=== PATIENT | female | born 1960 | race Caucasian/White ===

== ENCOUNTER 2019-08-20 11:56 | Emergency (ER) | payer BC ==
[~2019-08-20] VITALS: Ht 180.3 cm; Wt 89.5 kg
[~2019-08-20 11:56] MED LIST: ASPI-630 PO; ATEN25TA PO; CRESTOR40 MG PO; EXEN2VIA SQ; EZET10TA20 PO; FURO40TA4 PO; INSU100I13 SQ; INSU100V6 SQ; ISOS60TA2 PO; LISI2.5T PO; LUTE20TA PO; METF-658 PO; METF500T16 PO; METO10TA81 PO; MULT-208 PO; NITR0.4T24 SL; OMEG10005 PO; OMEP20CA16 PO; POTA20TA4 PO
--- NOTE | 2019-08-20 12:37 | PHYS DOC ---
Past Medical History Past Medical History: CHF, Diabetes-Type II Additional Past Medical Histor: neuropathy Past Surgical History: Coronary Bypass Surgery, Hysterectomy Smoking Status: Never Smoker Alcohol Use: None Drug Use: None General Adult EDM: Chief Complaint: CHEST PAIN HPI: HPI: Patient is a 59 year old female patient who presents with back pain, chest pain. States that started last night, has continued on throughout the day. States that she has been around other persons who have tested positive for COVID recently, had been tested yesterday at [facility] for COVID, is currently awaiting results. States she has had a fever, dry productive cough. States malaise. Has taken Tylenol for her fever this morning. Does states she has history of prior cardiac bypass, states last time she need her bypass, she started have some back pain similar to what she is currently having. Denies any nausea. Denies exertional dyspnea. Does state discomfort is worse when she lays back. Review of Systems: Review of Systems: Constitutional: Reports fever and chills [] Eyes: Denies change in visual acuity. [] HENT: Denies nasal congestion or sore throat. [] Respiratory: reports cough, shortness of breath. [] Cardiovascular: Reports chest pain, denies edema. [] GI: Denies abdominal pain, nausea, vomiting, bloody stools or diarrhea. [] : Denies dysuria. [] Musculoskeletal: Denies back pain or joint pain. [] Integument: Denies rash. [] Neurologic: Denies headache, focal weakness or sensory changes. [] Endocrine: Denies polyuria or polydipsia. [] Lymphatic: Denies swollen glands. [] Psychiatric: Denies depression or anxiety. [] Heart Score: HEART Score for Chest Pain: HEART Score for Chest Pain Response (Comments) Value History Moderately Suspicious 1 ECG Normal 0 Age >45 - < 65 1 Risk Factors >3 Risk Factors or Hx CAD 2 Troponin < Normal Limit 0 Total 4 Risk Factors: Risk Factors: DM, Current or recent (<one month) smoker, HTN, HLP, family history of CAD, obesity. Risk Scores: Score 0 - 3: 2.5% MACE over next 6 weeks - Discharge Home Score 4 - 6: 20.3% MACE over next 6 weeks - Admit for Clinical Observation Score 7 - 10: 72.7% MACE over next 6 weeks - Early Invasive Strategies Allergies: Allergies: Allergies Coded Allergies Type Severity Reaction Last Updated Verified acetaminophen Allergy Intermediate Nausea and Vomiting 05/08/15 Yes hydrocodone Allergy Intermediate Nausea and Vomiting 05/08/15 Yes Physical Exam: PE: Constitutional: Well developed, well nourished, no acute distress, non-toxic appearance. [] HENT: Normocephalic, atraumatic, oropharynx moist, no oral exudates, nose no rmal. [] Eyes: PERRLA, EOMI, conjunctiva normal, no discharge. [] Neck: Normal range of motion, no tenderness, supple, no stridor. [] Cardiovascular:Heart rate regular rhythm, no murmur [] Lungs & Thorax: Bilateral breath sounds clear to auscultation [] Abdomen: Bowel sounds normal, soft, no tenderness, no masses, no pulsatile masses. [] Skin: Warm, dry, no erythema, no rash. [] Back: No tenderness, no CVA tenderness. [] Extremities: No tenderness, no cyanosis, no clubbing, ROM intact, no edema. Negative Homans [] Neurologic: Alert and oriented X 3, normal motor function, normal sensory function, no focal deficits noted. [] Psychologic: Affect normal, judgement normal, mood normal. [] Current Patient Data: Vital Signs: Vital Signs Date Time Temp Pulse Resp B/P (MAP) Pulse Ox O2 Delivery O2 Flow Rate FiO2 08/20/19 12:03 98.3 71 128/71 (90) 98 Room Air 98.3 EKG: EKG: normal sinus rhythm, no ST elevation. T wave inversion I, aVL, V5, V6. [] Radiology/Procedures: Radiology/Procedures: FINDINGS: A frontal view of the chest obtained. There is no infiltrate, pleural effusion or pneumothorax. The heart is normal in size. There is evidence of prior median sternotomy. IMPRESSION: No acute pulmonary finding. Electronically signed by: mAanda Archibald MD (08/20/2019 1:03 PM) [facility][] Course & Med Decision Making: Course & Med Decision Making Pertinent Labs and Imaging studies reviewed. (See chart for details) [] Patient reports she feels a lot better resting at this time. States no more frequent shortness of breath. States she did follow-up with her primary care approximate 2 weeks ago, she will follow-up again. Advised patient to continue to isolate herself, staff to work, awaiting the results of her home COVID testing. When she is resistant, contact her primary care. States she does not want to stay in the hospital, states she feels a lot better at this time. Discussed patient her lab findings, vital signs, without signs of any hypoxia or cardiac abnormalities today. Stevie Disclaimer: Dragon Disclaimer: This electronic medical record was generated, in whole or in part, using a voice recognition dictation system. Departure Departure Impression: Primary Impression: Exposure to COVID-19 virus Additional Impressions: Back pain Qualified Codes: M54.6 - Pain in thoracic spine Cough Disposition: HOME, SELF-CARE Condition: GOOD Referrals: DIXON CORRALES MD (PCP) Patient Instructions: Back Pain, Adult, Cough, Adult Additional Instructions: As we discussed, let your primary care provider know with the results of your COVID test are from [facility], when you get this in the next 2 days. Continue to stay off of work, until you have a negative test, or stay off for the amount time recommended by your primary care provider. Continue to rest, stay hydrated. Keep her fever under control. If you continue to feel short of breath, have additional discomfort, return to the ER. Justicifation of Admission Dx: Justifications for Admission: Justification of Admission Dx: N/A CESAR AYALA APRN Aug 20, 2019 12:37
[2019-08-20 12:44] LABS: BASO % 0 % (0-3); EOS % 0 % (0-3); HEMATOCRIT 39.5 % (36.0-47.0); HEMOGLOBIN 13.7 g/dL (12.0-15.5); LYMPH # 2.5 x10^3/uL (1.0-4.8); LYMPH % 58 % (24-48); MEAN CORPUSCULAR HEMOGLOBIN 29 pg (25-35); MEAN CORPUSCULAR HGB CONC 35 g/dL (31-37); MEAN CORPUSCULAR VOLUME 84 fL (79-100); MONO # 0.3 x10^3/uL (0.0-1.1); MONO % 7 % (0-9); NEUT # 1.5 x10^3/uL (1.8-7.7); NEUT % 34 % (31-73); PLATELET COUNT 146 x10^3/uL (140-400); RED BLOOD COUNT 4.68 x10^6/uL (3.50-5.40); RED CELL DISTRIBUTION WIDTH 13.4 % (11.5-14.5); WHITE BLOOD COUNT 4.4 x10^3/uL (4.0-11.0)
[2019-08-20 12:47] LABS: CALCIUM 8.4 mg/dL (8.5-10.1); CREATININE 0.7 mg/dL (0.6-1.0); GFR 85.4; POTASSIUM 3.7 mmol/L (3.5-5.1)
[2019-08-20 12:53] LABS: ALBUMIN 3.2 g/dL (3.4-5.0); MAGNESIUM 1.7 mg/dL (1.8-2.4); TOTAL BILIRUBIN 0.4 mg/dL (0.2-1.0); TOTAL PROTEIN 6.4 g/dL (6.4-8.2)
[2019-08-20 12:55] LABS: PROTHROMBIN TIME PATIENT 12.5 SEC (11.7-14.0)
[2019-08-20 13:00] LABS: D-DIMER 0.32 ug/mlFEU (0.00-0.50)
--- NOTE | 2019-08-20 13:06 | RAD ---
EXAM: Chest, single view. HISTORY: Chest pain. COMPARISON: None. FINDINGS: A frontal view of the chest obtained. There is no infiltrate, pleural effusion or pneumothorax. The heart is normal in size. There is evidence of prior median sternotomy. IMPRESSION: No acute pulmonary finding. Electronically signed by: Amanda Archibald MD (08/20/2019 1:03 PM) [facility]
--- NOTE | 2019-08-20 13:30 | EKG ---
[facility] [address] [place] [address] Test Date: 2019-08-20 Test Time: 12:04:05 Pat Name: ZO NAPIER Department: Room: Gender: F Financial Legal Assistant: WILIAM : 1960 Requested By: CESAR AYALA Order Number: [id number] Reading MD: Measurements Intervals [place] Rate: 65 P: 90 WI: 136 QRS: 28 QRSD: 86 T: 133 QT: 402 QTc: 423 Interpretive Statements SINUS RHYTHM T ABNORMALITY IN ANTERIOR LEADS HIGH LATERAL LEADS ABNORMAL ECG RI6.01 No previous ECG available for comparison
[2019-08-20 13:39] VITALS: BP 113/63
== END 2019-08-20 13:45 | disposition home or self-care (01) ==
LOC: ER 11:56
DX: Z20.828 Contact with and (suspected) exposure to other viral communicable diseases (principal); M54.6 Pain in thoracic spine; R05 Cough; R07.89 Other chest pain; R06.02 Shortness of breath; E11.40 Type 2 diabetes mellitus with diabetic neuropathy, unspecified; Z86.79 Personal history of other diseases of the circulatory system; Z95.1 Presence of aortocoronary bypass graft; Z88.5 Allergy status to narcotic agent; Z88.6 Allergy status to analgesic agent
CPT/HCPCS: 36415; 71045; 80053; 83605; 83735; 84484; 85025; 85379; 85610; 93005; 99285